=== PATIENT | male | born 1950 | race Caucasian/White ===

== ENCOUNTER 2017-02-14 16:47 | Inpatient (IN) | payer MEDICARE ==
--- NOTE | ~2017-02-14 | CT23 ---
[facility] A Service of [facility] RADIOLOGY TEXT RESULTS PATIENT: LUIS DANIEL MAC LOCATION: [facility] 340- : 49 UNIT #: [id number] AGE: [address]: PANKAJ BAL MD SEX: M ORDER DR: [id number] [facility] [address] [place], [place] [address] [id number] E MR#: [id number] Acc #: [id number] NAME: LUIS DANIEL MAC : 1950 SEX: M STUDY DATE/TIME: 02/14/2017 17:15 UNIT: [facility] ROOM: STUDY DESCRIPTION: CT Angio Neck Attending Physician: Corwin Meléndez D.O. Ordering Physician: Corwin Meléndez D.O. Primary Care Physician: Champ Gray M.D. MEDICAL IMAGING REPORT This report is preliminary unless electronic signature is present EXAM CTA head and neck HISTORY Refer below. FINDINGS Please refer to the CTA head report on the same date for complete details. Dictated by... Walter Nicole Jr., M.D. THIS IS AN ELECTRONICALLY VERIFIED REPORT Walter Nicole Jr., M.D. at 02/14/2017 11:05 PM GRANT/jose rafael TD: 02/14/2017 19:28 JOB #: [id number] MEDICAL IMAGING REPORT Page 1 of 1 COPY
--- NOTE | ~2017-02-14 | CT2 ---
[facility] A Service of [facility] RADIOLOGY TEXT RESULTS PATIENT: LUIS DANIEL MAC LOCATION: [facility] 340- : 49 UNIT #: [id number] AGE: [address]: Lois Diaz MD SEX: M ORDER DR: [id number] [facility] [address] [place], [place] [address] [id number] I MR#: [id number] Acc #: [id number] NAME: LUIS DANIEL MAC. : 1950 SEX: M STUDY DATE/TIME: 02/15/2017 17:38 [facility] ROOM: [facility] STUDY DESCRIPTION: CT Abd and Pelv W Cont Attending Physician: Lois Diaz M.D. Ordering Physician: [facility] Primary Care Physician: Champ Gray M.D. MEDICAL IMAGING REPORT This report is preliminary unless electronic signature is present EXAM CT abdomen and pelvis 02/15 INDICATIONS Nausea, vomiting today. History of gastroesophageal reflux. TECHNIQUE Axial images were obtained through the abdomen and pelvis following IV contrast administration. Multiplanar reformats were obtained. This CT exam was performed with one or more of the following radiation dose reduction techniques: automatic exposure control, adjustment of mA and/or kV according to patient size, and iterative reconstruction. COMPARISON STUDIES No comparison abdomen and pelvis CT. FINDINGS ABDOMEN: There is some chronic pleural thickening in the right lower hemithorax which is unchanged from a chest CT of 01/07/2015. There is chronic scarring in the right lower lobe. Low-density lesion in the liver near the gallbladder fossa is unchanged from prior chest CT and is likely an area of focal fatty infiltration. Solid organs are otherwise normal. The gallbladder is contracted, but probably does contain some stones. No biliary obstruction. There is diffuse atherosclerotic disease. There is a focal area of short-segment ectasia of the infrarenal abdominal aorta measuring 2.8 cm. The unopacified GI tract is normal. No free fluid is seen. PELVIS: Urinary bladder is normal. The colon and appendix are normal. There are thickened ileal loops in the pelvis compatible with ileitis. These do not clearly involve the terminal ileum. They are not causing any STS. [facility] A Service of [facility] RADIOLOGY TEXT RESULTS PATIENT: LUIS DANIEL MAC LOCATION: [facility] 340-01 : 49 UNIT #: [id number] AGE: [address]: Lois Diaz MD SEX: M ORDER DR: this obstruction. No free fluid. IMPRESSION 1. Multiple thickened ileal loops in the pelvis compatible with ileitis. This does not result in any bowel obstruction and there is no clear involvement of the terminal ileum at this time. The colon and appendix are normal. 2. Chronic pleural thickening in the right lower hemithorax is stable. 3. Contracted gallbladder which probably contains stones. No biliary obstruction. 4. Stable focal fatty infiltration in the liver adjacent to the gallbladder fossa. 5. Atherosclerotic disease with focal ectasia of the infrarenal aorta at about 2.8 cm diameter. Dictated by... Walter Nicole Jr., M.D. THIS IS AN ELECTRONICALLY VERIFIED REPORT Walter Nicole Jr., M.D. at 02/16/2017 8:52 AM GRANT/jose rafael TD: 02/15/2017 21:11 JOB #: [id number] MEDICAL IMAGING REPORT Page 1 of 1 COPY
--- NOTE | ~2017-02-14 | CR72 ---
[facility] A Service of [facility] RADIOLOGY TEXT RESULTS PATIENT: LUIS DANIEL MAC LOCATION: [facility] 340-01 : 49 UNIT #: [id number] AGE: [address]: Lois Diaz MD SEX: M ORDER DR: [id number] [facility] [address] [place], [place] [address] [id number] E MR#: [id number] Acc #: [id number] NAME: LUIS DANIEL MAC. : 1950 SEX: M STUDY DATE/TIME: 02/14/2017 16:13 UNIT: [facility] ROOM: STUDY DESCRIPTION: CR Chest Single View Portable Attending Physician: Corwin Meléndez D.O. Ordering Physician: Er [facility] Primary Care Physician: Champ Gray M.D. MEDICAL IMAGING REPORT This report is preliminary unless electronic signature is present EXAM AP radiograph of the chest 02/14/2017 HISTORY Altered mental status. Nausea, vomiting, hypertension, acid reflux, angioplasty, prior history smoking. Prior history myocardial infarction. AP radiograph of the chest is presented. COMPARISON STUDIES 01/06/2015 FINDINGS Abnormal appearance of the right clavicle is stable. Patient appears to be status post resection of the lateral aspect of the right clavicle and the clavicle is directed in cephalad direction. No change from prior study. Degenerative changes in the spine also stable. Stable mild cardiac enlargement. The lungs are well inflated. Relative lucency mid to upper lung zone suggesting underlying emphysema in this patient with history of smoking. There is no clear indication of acute infectious or inflammatory disease. No pleural effusion or pneumothorax. 1.8 cm nodular density superimposed over the posterior right eighth rib. The appearance and location suggests this could be a nipple shadow artifact. It is not visualized on the prior study. True developing pulmonary nodule not excluded. Finding best further clarified with repeat PA and lateral radiographs of the chest with nipple markers in place. If not confirmed as nipple shadow artifact, then CT would be recommended to exclude developing pulmonary neoplasm. Dictated by... Salvador Lopes M.D. THIS IS AN ELECTRONICALLY VERIFIED REPORT STS. [facility] A Service of [facility] RADIOLOGY TEXT RESULTS PATIENT: LUIS DANIEL MAC LOCATION: [facility] 340-01 : 49 UNIT #: [id number] AGE: [address]: Lois Diaz MD SEX: M ORDER DR: Salvador Lopes M.D. at 02/15/2017 10:54 PM Britni TD: 02/14/2017 18:28 JOB #: [id number] MEDICAL IMAGING REPORT Page 1 of 1 COPY
--- NOTE | ~2017-02-14 | CT71 ---
[facility] A Service of [facility] RADIOLOGY TEXT RESULTS PATIENT: LUIS DANIEL MAC LOCATION: [facility] : 49 UNIT #: [id number] AGE: [address]: PANKAJ BAL MD SEX: M ORDER DR: [id number] [facility] [address] [place], [place] [address] [id number] E MR#: [id number] Acc #: [id number] NAME: LUIS DANIEL MAC. : 1950 SEX: M STUDY DATE/TIME: 02/14/2017 17:10 UNIT: [facility] ROOM: STUDY DESCRIPTION: CT Head Wo Contrast Attending Physician: Corwin Meléndez D.O. Ordering Physician: Corwin Meléndez D.O. Primary Care Physician: Champ Gray M.D. MEDICAL IMAGING REPORT This report is preliminary unless electronic signature is present EXAM Head CT. DATE OF EXAM 02/14/2017 INDICATIONS Acute mental status changes. Nausea, vomiting, confusion that started yesterday. Right side weakness with slurred speech. TECHNIQUE Axial images were obtained from the base to the vertex without contrast. This CT exam was performed with one or more of the following radiation dose reduction techniques: automatic exposure control, adjustment of mA and/or kV according to patient size, and iterative reconstruction. COMPARISON No comparison. FINDINGS The exam is slightly motion degraded. Ventricular size and configuration are within normal limits. There is no acute infarct or hemorrhage. There are no masses. Atherosclerotic calcifications are present in the carotid siphons. There are no skull fractures. IMPRESSION Slightly motion degraded but otherwise negative head CT. Dictated by... Walter Nicole Jr., M.D. THIS IS AN ELECTRONICALLY VERIFIED REPORT [facility] A Service of [facility] RADIOLOGY TEXT RESULTS PATIENT: LUIS DANIEL MAC LOCATION: [facility] 340-01 : 49 UNIT #: [id number] AGE: [address]: PANKAJ BAL MD SEX: M ORDER DR: Walter Nicole Jr., M.D. at 02/14/2017 11:04 PM GRANT/radha TD: 02/14/2017 19:04 JOB #: [id number] MEDICAL IMAGING REPORT Page 1 of 1 COPY
--- NOTE | ~2017-02-14 | DS ---
Unit #: [id number] #: [id number] Patient: LUIS DANIEL MAC [id number] [address] [place], [place] [address] [id number] I MR#: [id number] NAME: LUIS DANIEL MAC. ROOM: 340 Age: 66 Sex: M Admission Date: 02/14/2017 : 1950 Discharge Date: 02/16/2017 Attending Physician: Lois Diaz M.D. Primary Care Physician: Champ Gray M.D. DISCHARGE SUMMARY DISCHARGE DIAGNOSES 1. Ileitis with nausea, vomiting diarrhea. The patient is tolerating an oral intake and no longer nauseous or vomiting. 2. Toxic metabolic encephalopathy secondary to B12 deficiency as well as overuse of pain medicine, resulting in ileus. 3. Nausea and vomiting. As stated above, due to ileus and resolved at this time. Tolerating a regular oral intake. 4. Hypokalemia, hypomagnesemia, hyponatremia, resolved. Likely due to nausea and vomiting. 5. B12 deficiency anemia. CONSULTANTS Dr. Melendez of psychiatry was consulted given his altered mental status. PROCEDURES None. DIAGNOSTIC DATA IMAGING: Chest x-ray on 02/14/2017 with findings of stable mild cardiac enlargement. Lungs are well inflated. No clear indication for acute infection. No pleural effusion. No pneumothorax. CT head without contrast on 02/14/2017 with impression of slightly motion degraded, but otherwise negative head CT. CT angio head and neck on 02/14/2017 with impression of plaque disease in the carotid bifurcations, but there is no significant stenosis by NASCET criteria in the carotid arteries. There is less than 50% stenosis in the proximal RCA on the left by NASCET criteria. Vertebral arteries are widely patent and codominant. There is no evidence of carotid or vertebral dissection. Intracranially there is no flow-limiting stenosis or vascular malformation. No aneurysm is seen. No vessel cutoff. 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 CT abdomen and pelvis on 02/14/2017 with impression of mild thickened ileal loops in the pelvis, compatible with ileitis. This does not result in any bowel obstruction and there is no clear involvement of the terminal ileum at this time. The colon and hepatic index are normal. Chronic pleural thickening in the right lower hemithorax is stable. Contracted gallbladder which probably contains stones. No biliary obstruction. Stable focal fatty infiltration of the liver adjacent to the gallbladder fossa. Atherosclerotic disease with focal ectasia of the infrarenal aorta at about 2.8 cm diameter. Unit #: [id number] #: [id number] Patient: LUIS DANIEL MAC HOSPITAL COURSE The patient is a pleasant 66-year-old male with a past medical history of essential hypertension, hyperlipidemia, coronary artery disease, status post left knee replacement on 12/18/2016. He presented to the emergency department due to altered mental status. The patient had a left knee replacement on 12/18/2016 and had been bothered with symptoms of nausea and vomiting. He had multiple pain medication adjustments with oxycodone and hydrocodone. The patient had been talking "gibberish" the morning prior to admission. The patient was only oriented to one. Therefore, he was brought to the emergency department for further evaluation. The patient denied any fevers, chills or shortness of breath. CT of the head as well as CT angiogram of the head and neck were done in the emergency department, which were basically normal. As stated above, the patient was admitted for altered mental status, nausea, vomiting and hypokalemia. The following day the patient had some improvement. The patient was treated with IV fluids. CT of the abdomen and pelvis was done, as stated above. The patient had been tolerating a regular diet for the past two days during his hospitalization. He is no longer nauseous and no longer vomiting. He is having bowel movements. He does not think it is diarrhea, but his said it is a bit more loose than usual. We will be checking on his c-diff to rule out c-diff colitis. At this time, since the patient does not appear sickly, is tolerating an oral intake, is no longer nauseated or vomiting and has no abdominal pain and no fever, it is believed the patient is stable to be discharged home on oral antibiotics of Flagyl and Cipro for the next seven days. DISCHARGE CONDITION Stable. DISPOSITION Home. DIET Regular diet as per prior to hospitalization. ACTIVITY No limits. The patient is to resume ambulating every day as tolerated as per prior to hospitalization. DISCHARGE MEDICATION 1. Norvasc 10 mg p.o. daily. 2. Metoprolol 25 mg p.o. daily. 3. Cipro 500 mg p.o. b.i.d. for 7 days. 4. Flagyl 500 mg p.o. t.i.d. for the next 7 days. 5. B12 1000 mcg p.o. daily. At this time we are pending repeat CMP and CBC. If those are all normal, the patient will be discharged home. Dictated by... Eb Wells PA-C for Kamran Sanchez TD: 02/17/2017 12:36 JOB #: [id number] Unit #: [id number] #: [id number] Patient: ESTEFANIALUIS DANIEL DISCHARGE SUMMARY Page 1 of 1 X X DISCHARGE SUMMARY
--- NOTE | ~2017-02-14 | CO ---
Unit #: [id number] #: [id number] Patient: HELDER CONDE [id number] [facility] [address] [facility] [address] [facility]. [place], [place] [address] [id number] I MR#: [id number] NAME: HELDER CONDE. ROOM: 340 Age: 66 Sex: M Admission Date: 02/14/2017 : 1950 Attending Physician: Lois Diaz M.D. Primary Care Physician: Champ Gray M.D. Consultation Date: 02/15/2017 CONSULTATION REPORT REASON FOR CONSULTATION Altered mental status, confusion. HISTORY OF PRESENT ILLNESS Mr. Helder Conde is a 66-year-old white male, seen in room 340, bed 1 on 02/15/2017 at [facility]. The patient was admitted with altered mental status and able to answer some question, needed a sitter. The patient was still somewhat confused, guarded, withdrawn, isolative. The patient received Ativan 1 mg this morning for agitation. The patient reported he was a here for confusion. The patient has a history of hypertension, hyperlipidemia, coronary artery disease, and status post knee replacement. When the patient was admitted his thought process were disorganized, disorganized behavior. The patient is feeling better, but still having above-mentioned symptoms. The patient currently denied any suicidal or homicidal ideation. Denied any auditory or visual hallucination, but confusion. PAST PSYCHIATRIC HISTORY Unremarkable for any history of previous depression and anxiety. MEDICAL HISTORY History of hypertension, hyperlipidemia, coronary artery disease, COPD. ALLERGIES No known drug allergies. HOME MEDICATIONS Norvasc, Avapro, metoprolol, hydrocodone, Antivert. FAMILY HISTORY AND SOCIAL HISTORY The patient has a good support from family. No history of abuse. No history of any substance abuse. MENTAL STATUS EXAMINATION Vital signs; temperature 98.8, pulse 91, respiratory rate 18, blood pressure 124/73, oxygen saturation 93%. General appearance, the patient dressed casually in hospital attire, lying comfortably. Attention span and concentration, poor. Speech, slow with long pauses. Oriented in place and self. Mood and affect were labile. Thought process, circumstantial. Thought content, guarded, paranoid, confused, but denied any thoughts of harming self or others. Recent and remote memory, fair to poor. Language, fair. Fund of knowledge, fair. Insight and judgment, fair to slightly impaired. Unit #: [id number] #: [id number] Patient: HELDER CONDE DIAGNOSES Psychiatric: Delirium, F05, resolving. Secondary diagnosis: Deferred. Medical diagnosis: Please refer to H and P. Stressors: Psychosocial stressor. ASSESSMENT/PLAN 1. Supportive psychotherapy and psychoeducation provided to the patient. 2. Educated about benefits and side effects of medication and course and prognosis of illness. 3. Advised to continue with one-on-one monitoring for the patient's safety. 4. Recommending at this time to use haloperidol 5 mg q.4 hours p.r.n. for severe agitation/psychosis, if unable to take p.o. use IM route. We will continue to follow. If needed, consider further adjustment of medication. Please feel free to call if any questions, telephone #[phone]. Dictated by... Kamran Zepeda/bo TD: 02/16/2017 01:36 JOB #: [id number] CONSULTATION REPORT Page 1 of 1 X Ollie Melendez MD X CONSULTATION REPORT
--- NOTE | ~2017-02-14 | EKG ---
PATIENT: LUIS DANIEL [facility] UNIT #: [id number] Ventricular Rate: 94 BPM Atrial Rate: 94 BPM P-R Interval: 158 ms QRS Duration: 104 ms Q-T Interval: 370 ms QTC Calculation(Bezet): 462 ms P Dixie: 48 degrees Calculated R Dixie: 75 degrees Calculated T Dixie: 29 degrees Diagnosis Line: Normal sinus rhythm Diagnosis Line: Normal ECG Diagnosis Line: When compared with ECG of 06-JAN-2015 16:43, Diagnosis Line: Premature ventricular complexes are no longer Diagnosis Line: Present Diagnosis Line: Nonspecific T wave abnormality now evident in Diagnosis Line: Inferior leads Diagnosis Line: Nonspecific T wave abnormality no longer evident Diagnosis Line: in Lateral leads Diagnosis Line: Confirmed by DAVID GREEN MD ([id number]) on 02/18/2017 Diagnosis Line: 3:50:42 PM INTERPRETING MD: NORMA ANTONIO
--- NOTE | ~2017-02-14 | HP ---
Unit #: [id number] #: [id number] Patient: LUIS DANIEL MAC [id number] [address] [place], [place] [address] [id number] I MR#: [id number] NAME: LUIS DANIEL MAC. ROOM: 51527 Age: 66 Sex: M Admission Date: 02/14/2017 : 1950 Attending Physician: Alex Rivas M.D. Primary Care Physician: Champ Gray M.D. HISTORY AND PHYSICAL CHIEF COMPLAINT Altered mental status. HISTORY OF PRESENT ILLNESS The patient is a 66-year-old male with a history of a hypertension, hyperlipidemia, coronary artery disease, status post knee replacement, left knee replacement on December 18, brought to the emergency room with altered mental status. The patient had the left knee replacement on December 18 and then bothered with the nausea and vomiting. The patient had multiple pain medications since then starting with the oxycodone ad changing to hydrocodone. The patient has been talking gibberish since yesterday morning. The patient is awake, alert, oriented x1 and the patient knows the date of however the patient does not know today's date and the year. He denies any fever, chills or shortness of breath. The patient had a CT of the head and CT of the neck that shows no acute findings and the patient is being admitted for the above reasons. PAST MEDICAL HISTORY History of hypertension, hyperlipidemia, coronary artery disease, likely some COPD. PAST SURGICAL HISTORY Left knee surgery, right shoulder surgery. ALLERGIES No known drug allergies. HOME MEDICATION He is on Norvasc, Avapro, metoprolol and hydrocodone and Antivert. SOCIAL HISTORY The patient smokes two packs per day. He drinks one to two beers per week, denies any illicit drug abuse. FAMILY HISTORY Reviewed and none. REVIEW OF SYMPTOMS Fourteen-point review of symptoms performed and only pertinent positive findings are described above, remaining are negative. PHYSICAL EXAMINATION GENERAL APPEARANCE: On examination the patient is lying on a bed not in Unit #: [id number] #: [id number] Patient: LUIS DANIEL MAC acute distress. VITAL SIGNS: Temperature 97.6, pulse 103, respiratory rate 16, blood pressure 119/69, sating 95% at room air. HEENT: Head atraumatic, normocephalic. Pupils equal, round and reacting to light and accommodation. Extraocular movements are intact. Moist mucous membranes. NECK: Supple. LUNGS: Decreased air entry at the bases. HEART: Regular rate and rhythm. ABDOMEN: Soft, positive bowel sounds. EXTREMITIES: No cyanosis. No clubbing. Clean, dry and healed surgical scar on the left knee. NEUROLOGIC: Alert, awake, oriented. PSYCHIATRIC: Patient is oriented x1. DIAGNOSTIC STUDIES IMAGING: Chest x-ray shows abnormal appearance of the right clavicle is stable. Patient appears to be status post resection of the left lateral aspect of the right clavicle and the clavicle is directed cephalad direction. No change from prior study. The lungs are well inflated. Relative lucency mid to upper lung zone suggesting underlying emphysema in this patient with a history of smoking. There is no clear indication of acute infectious or inflammatory disease. No pleural effusions or pneumothorax. A 1.8 cm nodular density superimposed over the posterior right eighth rib. The appearance and location suggests this could be nipple shadow artifact. CT of the head is negative. CTA of the neck shows positive for plaque but no critical stenosis. LABORATORY DATA: Glucose 165, BUN 12, creatinine 1.2, sodium 135, potassium 3.3, chloride 95, bicarb 26 and calcium 9.3, total protein is 7.8, direct bilirubin is 0.4, AST 13, ALT 12, alkaline phosphatase 60 and acetaminophen less than 10, salicylate less than 4, alcohol less than 5, WBC is 14.1, hemoglobin 14.9, hematocrit 44.5, platelets 334, neutrophils 84.9. UA is not done. ASSESSMENT 1. Altered mental status. 2. Vomiting. 3. Hypokalemia. PLAN 1. Plan to admit the patient as an observation with the telemetry. 2. Replace the potassium. 3. Check the UA with culture to rule out infectious etiology. 4. Check the urine toxicology for the opiate abuse. 5. Continue with the Zofran for vomiting. 6. The patient will have a sitter at 1:1 and psych evaluation for confusion. 7. Repeat the labs again in the morning. 8. Further recommendations will follow. Unit #: [id number] #: [id number] Patient: LUIS DANIEL MAC Dictated by Kamran Torres TD: 02/14/2017 20:04 JOB #: [id number] HISTORY AND PHYSICAL Page 1 of 1 X X HISTORY AND PHYSICAL
--- NOTE | ~2017-02-14 | CT17 ---
[facility] A Service of [facility] RADIOLOGY TEXT RESULTS PATIENT: LUIS DANIEL MAC LOCATION: [facility] 340-01 : 49 UNIT #: [id number] AGE: [address]: PANKAJ BAL MD SEX: M ORDER DR: [id number] [facility] [address] [place], [place] [address] [id number] E MR#: [id number] Acc #: [id number] NAME: LUIS DANIEL MAC. : 1950 SEX: M STUDY DATE/TIME: 02/14/2017 17:15 UNIT: [facility] ROOM: STUDY DESCRIPTION: CT Angio Head Attending Physician: Corwin Meléndez D.O. Ordering Physician: Corwin Meléndez D.O. Primary Care Physician: Champ Gray M.D. MEDICAL IMAGING REPORT This report is preliminary unless electronic signature is present EXAM Head and neck CT angiogram 02/14 INDICATIONS Humeral status changes with nausea, vomiting and confusion yesterday and today. Right side weakness and slurred speech. TECHNIQUE Axial images were obtained through the head and neck following IV contrast administration. 3-D reformats were obtained. This CT exam was performed with one or more of the following radiation dose reduction techniques: automatic exposure control, adjustment of mA and/or kV according to patient size, and iterative reconstruction. COMPARISON STUDIES Head CT performed the same day. MRA of the head and neck dated 06/22/2015. FINDINGS There is some motion degradation on the exam. The branching pattern from the arch is normal. The vertebral arteries appear codominant and widely patent. There is some plaque at the carotid bifurcations, left greater than right. This results in a very mild, less than 50% stenosis in the proximal left ICA by NASCET criteria. There is also probably a mild stenosis at the origin of the right external carotid artery measuring 50% or less. There is no carotid or vertebral dissection. There is some mild plaque in the carotid siphons but no stenosis is seen. Intracranially, no flow in the flow-limiting stenosis is seen by NASCET criteria. No aneurysm is identified and there is no vascular malformation. 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 [facility] A Service of [facility] RADIOLOGY TEXT RESULTS PATIENT: LUIS DANIEL MAC LOCATION: [facility] 340-01 : 49 UNIT #: [id number] AGE: [address]: PANKAJ BAL MD SEX: M ORDER DR: IMPRESSION 1. Plaque disease in the carotid bifurcations but there is no significant stenosis by NASCET criteria in the carotid arteries. There is a less than 50% stenosis in the proximal ICA on the left by NASCET criteria. 2. Vertebral arteries are widely patent and codominant. There is no evidence of carotid or vertebral dissection. 3. Intracranially, there is no flow-limiting stenosis or vascular malformation. No aneurysm is seen. No vessel cutoff. 4. 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 5. 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 NOTE Emphysema is noted in the visualized lungs. Dictated by... Walter Nicole Jr., M.D. THIS IS AN ELECTRONICALLY VERIFIED REPORT Walter Nicole Jr., M.D. at 02/14/2017 11:04 PM GRANT/jose rafael TD: 02/14/2017 19:22 JOB #: [id number] MEDICAL IMAGING REPORT Page 1 of 1 COPY
[~2017-02-14 16:47] MED LIST: AMLODIPINE BESY10 MG PO; AMOXICILLIN875 MG PO; ASPIRIN; AVAPRO300 M1 PO; LIPITOR; LOTREL; LOTREL 5/10 MG1 CAP; METOPROLOL SUCC25 MG PO; MOTION SICKNESS25 M4 PO; OMACOR; OMNICEF300 M1 PO; PROTONIX; TOPROL XL
[2017-02-14 17:00] LABS: BASOPHIL% 0.2 % (0-2.5); EOSINOPHIL% 0.2 % (0.0-7.0); HEMATOCRIT 44.5 % (38.0-50.0); HEMOGLOBIN 14.9 gm/dL (13.0-16.0); MEAN CELL VOLUME 89.3 FL (83-96); MEAN CORPUSCULAR HEMOGLOBIN 29.8 PG (28-34); MEAN CORPUSCULAR HGB CONC 33.4 g/dL (30-36); MONOCYTE# 1.1 X10e3 (0-1.0); MONOCYTE% 7.7 % (3.0-12.0); NEUTROPHIL% 84.9 % (40-75); PLATELET COUNT 334 X10e3 (140-420); RED BLOOD COUNT 4.99 X10e (3.90-5.60); RED CELL DISTRIBUTION WIDTH 14.6 % (11.0-15.5); WHITE BLOOD COUNT 14.1 X10e3 (4.0-10.5)
[2017-02-14 17:04] LABS: DIFF IND NO
[2017-02-14 17:07] LABS: ALBUMIN SERUM 3.9 g/dL (3.5-5.0); ALKALINE PHOSPHATASE 60 U/L (32-92); ALT (SGPT) 12 U/L (10-40); AST (SGOT) 13 U/L (10-42); BILIRUBIN,TOTAL 0.8 mg/dL (0.2-2.0); BLOOD UREA NITROGEN 12 mg/dL (9-23); CALCIUM SERUM 9.3 mg/dL (8.4-10.2); CARBON DIOXIDE 26 mmol/L (22-31); CHLORIDE 95 mmol/L (100-111); CREATININE SERUM 1.1 mg/dL (0.6-1.4); GLOM FILT RATE Estimated 69.1 mL/min (>60); GLUCOSE FASTING 165 mg/dL (70-110); POTASSIUM 3.3 mmol/L (3.5-5.1); PROTEIN TOTAL SERUM 7.8 g/dL (6.0-8.3); SALICYLATE <4.0 mg/dL; SODIUM 135 mmol/L (135-145)
[2017-02-14 17:11] LABS: POC - CREATININE 1.11 mg/dL (0.64-1.27); POC - GFR >60.0 mL/min (>60)
[2017-02-14 17:11] LABS: ACETAMINOPHEN <10 ug/mL; ALCOHOL BLOOD <5 mg/dL (0)
[2017-02-14 19:19] LABS: URINE SOURCE CLEAN CATCH
[2017-02-14 19:36] LABS: URINE APPEARANCE CLOUDY; URINE BILIRUBIN NEG (NEG); URINE BLOOD TRACE (NEG); URINE COLOR DK YELLOW; URINE GLUCOSE 100 MG/DL (NEG); URINE KETONE TRACE (NEG); URINE LEUKOCYTE ESTERASE NEG (NEG); URINE NITRATE NEG (NEG); URINE PH 5.5 (5-8); URINE PROTEIN 2+ (NEG); URINE SPECIFIC GRAVITY 1.017 (1.003-1.035)
[2017-02-14 19:41] LABS: CULTURE INDICATED? YES; URINE BACTERIA AUWI NEG (NEGATIVE); URINE SQUAMOUS EPITHELIAL CELL FEW /[HPF]
[2017-02-14 19:48] LABS: AMPHETAMINE NEG (NEG); BARBITURATES NEG (NEG); BENZODIAZEPINES NEG (NEG); COCAINE NEG (NEG); MARIJUANA NEG (NEG); OPIATES NEG (NEG); TRICYCLIC ANTIDEPRESSANTS NEG (NEG); U METHADONE NEG (NEG)
[2017-02-14 20:13] LABS: POC - CKMB 4.1 ng/mL (0.0-7.9); POC - TROPONIN <0.05 ng/mL (<=0.05)
[2017-02-15 06:30] LABS: BASOPHIL% 0.3 % (0-2.5); EOSINOPHIL# 0.1 X10e3 (0-0.7); EOSINOPHIL% 0.8 % (0.0-7.0); HEMATOCRIT 37.5 % (38.0-50.0); LYMPHOCYTE# 1.8 X10e3 (1.0-3.5); LYMPHOCYTE% 15.4 % (17.0-45.0); MEAN CORPUSCULAR HEMOGLOBIN 29.5 PG (28-34); MEAN CORPUSCULAR HGB CONC 33.1 g/dL (30-36); MEAN PLATELET VOLUME 8.9 FL (6.5-11.5); MONOCYTE# 1.4 X10e3 (0-1.0); MONOCYTE% 11.7 % (3.0-12.0); NEUTROPHIL# 8.4 X10e3 (1.5-7.1); NEUTROPHIL% 71.8 % (40-75); PLATELET COUNT 269 X10e3 (140-420); RED BLOOD COUNT 4.21 X10e (3.90-5.60); RED CELL DISTRIBUTION WIDTH 14.1 % (11.0-15.5); WHITE BLOOD COUNT 11.8 X10e3 (4.0-10.5)
[2017-02-15 06:32] LABS: HEMOGLOBIN 12.4 gm/dL (13.0-16.0)
[2017-02-15 06:33] LABS: DIFF IND NO
[2017-02-15 07:42] LABS: CREATININE SERUM 0.8 mg/dL (0.6-1.4); GLOM FILT RATE Estimated 92.5 mL/min (>60)
[2017-02-15 07:48] LABS: POTASSIUM 2.5 mmol/L (3.5-5.1)
[2017-02-15 12:10] LABS: FOLATE (FOLIC ACID) >23.6 ng/mL (>5.8)
[2017-02-15 13:25] LABS: %MB 3.1 % (0.0-4.0); MB 5.9 ng/ml
[2017-02-16] MEDS ORDERED: B-121000 MC1 PO (11:44)
[2017-02-16] MEDS ORDERED: FLAGYL PO (11:45)
[2017-02-16] MEDS ORDERED: CIPRO PO (11:45)
[2017-02-16 11:51] LABS: HEMOGLOBIN 12.5 gm/dL (13.0-16.0); MEAN CELL VOLUME 90.1 FL (83-96); MEAN CORPUSCULAR HEMOGLOBIN 29.6 PG (28-34); MEAN CORPUSCULAR HGB CONC 32.9 g/dL (30-36); MEAN PLATELET VOLUME 8.4 FL (6.5-11.5); RED BLOOD COUNT 4.22 X10e (3.90-5.60); RED CELL DISTRIBUTION WIDTH 14.2 % (11.0-15.5); WHITE BLOOD COUNT 9.6 X10e3 (4.0-10.5)
[2017-02-16 12:34] LABS: ALKALINE PHOSPHATASE 47 U/L (32-92); ALT (SGPT) 14 U/L (10-40); AMYLASE 10 U/L (0-46); AST (SGOT) 18 U/L (10-42); BLOOD UREA NITROGEN 7 mg/dL (9-23); CALCIUM SERUM 7.8 mg/dL (8.4-10.2); CARBON DIOXIDE 23 mmol/L (22-31); CHLORIDE 102 mmol/L (100-111); CREATININE SERUM 0.7 mg/dL (0.6-1.4); GLOM FILT RATE Estimated 97.7 mL/min (>60); GLUCOSE FASTING 205 mg/dL (70-110); LIPASE 14 U/L (22-51); POTASSIUM 3.1 mmol/L (3.5-5.1); PROTEIN TOTAL SERUM 6.1 g/dL (6.0-8.3); SODIUM 133 mmol/L (135-145)
[2017-02-16 12:35] LABS: BILIRUBIN,TOTAL <0.1 mg/dL (0.2-2.0)
== END 2017-02-16 14:04 | disposition home or self-care (01) | DRG 391 ==
LOC: CED 16:47 → CEDOF 19:04 → C3A PCU 20:43
PROVIDERS: Emergency Medicine; Family Medicine; Internal Medicine; Physician Assistant Medical
PROC: B328YZZ Computerized Tomography (CT Scan) of Bilateral Internal Carotid Arteries using Other Contrast (ICD-10-PCS; principal; 2017-02-14)
PROC: B32RYZZ Computerized Tomography (CT Scan) of Intracranial Arteries using Other Contrast (ICD-10-PCS; 2017-02-14)
PROC: B32GYZZ Computerized Tomography (CT Scan) of Bilateral Vertebral Arteries using Other Contrast (ICD-10-PCS; 2017-02-14)
DX: K52.9 Noninfective gastroenteritis and colitis, unspecified (principal); G92 Toxic encephalopathy; F05 Delirium due to known physiological condition; E87.1 Hypo-osmolality and hyponatremia; E83.42 Hypomagnesemia; D51.9 Vitamin B12 deficiency anemia, unspecified; K56.7 Ileus, unspecified; I10 Essential (primary) hypertension; E78.5 Hyperlipidemia, unspecified; I25.10 Atherosclerotic heart disease of native coronary artery without angina pectoris; Z96.652 Presence of left artificial knee joint; F17.210 Nicotine dependence, cigarettes, uncomplicated; E87.6 Hypokalemia
CPT/HCPCS: 36415; 70450; 70496; 70498; 71010; 74177; 80048; 80053; 80307; 81003; 82140; 82150; 82550; 82553; 82565; 82607; 82746; 82947; 83605; 83690; 83735; 84443; 84484; 85025; 85027; 87040; 87086; 87493; 93005; 94760; 96360; 96361; 97163; 97165; 99285; G0480; G8978-GP; G8979-GP; G8980-GP; G8987-GO; G8988-GO; G8989-GO; J1650; J2060; J2405; J3420; J3475; Q9967